=== PATIENT | male | born 1960 | race Caucasian/White ===

== ENCOUNTER → 2021-07-02 | Outpatient (CLI) | payer OTHER ==
[~2021-07-02] MED LIST: ATENOLOL 25 MG25 M1 PO; B12INJ IM; COLACE100 MG PO; MIRALAX17 GM PO; PROTONIX40 M4 PO; TYLENOL325 MG PO
== END ==
LOC: M.CT 13:43
PROVIDERS: ATTEND Nurse Practitioner Family
DX: Z13.6 Encounter for screening for cardiovascular disorders (principal)